=== PATIENT | male | born 1980 | race Hispanic/Latino ===

== ENCOUNTER 2022-04-22 18:56 | Emergency (ER) | payer OTHER ==
[~2022-04-22] VITALS: Ht 170.2 cm; Wt 98.0 kg
[2022-04-22 18:57] VITALS: BP 163/101
[2022-04-22] MEDS ORDERED: OXYC-38 PO ×2 (19:23→22:29)
[2022-04-22] MEDS ORDERED: INDO50CA98 PO (19:25)
[2022-04-22] MEDS ORDERED: COLC0.6C3 PO (19:25)
[2022-04-22] MEDS ORDERED: ALLO100T PO (19:25)
[2022-04-22] MEDS ORDERED: OXYCODONE/ACETAMIN 5/325MG TAB PO ONE (19:30)
[2022-04-22] MEDS ORDERED: COLCHICINE 0.6 MG TABLET PO ONE (19:30)
== END 2022-04-22 20:06 | disposition home or self-care (01) ==
LOC: EDBD 18:56 → EDH 18:56
DX: M10.9 Gout, unspecified (principal); I10 Essential (primary) hypertension; E78.00 Pure hypercholesterolemia, unspecified; E11.9 Type 2 diabetes mellitus without complications

== ENCOUNTER 2022-07-18 16:41 | Emergency (ER) | payer OTHER ==
[~2022-07-18] VITALS: Ht 167.6 cm; Wt 94.3 kg
[~2022-07-18 16:41] MED LIST: ALLO100T PO; COLC0.6C3 PO; INDO50CA98 PO; OXYC-38 PO
[2022-07-18] MEDS ORDERED: KETOROLAC 15MG/ML VIAL (15MG/ML) IV ONE (17:00)
[2022-07-18] MEDS ORDERED: 0.9%NACL 1000ML 2,000 ML IV ONE (17:00)
[2022-07-18 17:27] LABS: BASOPHILS % (AUTO) 0.4 % (0.0-5.0); EOSINOPHILS % (AUTO) 2.6 % (0.0-8.0); HEMATOCRIT 40.9 % (42-54); LYMPHOCYTES % (AUTO) 22.6 % (21.0-51.0); MEAN CORPUSCULAR HEMOGLOBIN 28.6 pg (27.0-33.0); MEAN CORPUSCULAR HGB CONC 33.7 g/dL (32.0-36.0); MEAN CORPUSCULAR VOLUME 84.7 fL (79-99); MONOCYTES % (AUTO) 8.2 % (3.0-13.0); NEUTROPHILS % (AUTO) 64.9 % (40.0-77.0); PLATELET COUNT (AUTO) 271 K/uL (130-400); RED BLOOD CELL COUNT(AUTO) 4.83 MIL/uL (4.50-6.20); RED CELL DISTRIBUTION WIDTH 13.7 % (11.0-15.5); WHITE BLOOD COUNT (AUTO) 14.1 K/uL (4.8-10.8)
[2022-07-18 17:36] LABS: CREATININE 1.1 mg/dL (0.5-1.5); POTASSIUM 4.1 mmol/L (3.5-5.1)
[2022-07-18 17:40] LABS: ALBUMIN 3.7 g/dL (3.5-5.0); TOTAL PROTEIN, SERUM 7.4 g/dL (6.0-8.3)
[2022-07-18 18:17] LABS: APPEARANCE,URINE CLEAR (CLEAR); BILIRUBIN,URINE NEGATIVE (NEGATIVE); COLOR,URINE LIGHT-YELLOW (YELLOW); GLUCOSE, URINE (UA) NEGATIVE (NEGATIVE); KETONES,URINE NEGATIVE (NEGATIVE); LEUKOCYTE ESTERASE ,URINE NEGATIVE Leu/uL (NEGATIVE); NITRATE,URINE NEGATIVE (NEGATIVE); OCCULT BLOOD,URINE NEGATIVE (NEGATIVE); PH,URINE 5.5 (5.0-8.0); PROTEIN,URINE NEGATIVE (NEGATIVE); UROBILINOGEN,URINE 0.2 mg/dL (0.2-1.0)
[2022-07-18] MEDS ORDERED: IOHEXOL 350 MG/ML 100ML INFUS..BTL IV ONE (18:38)
[2022-07-18 22:11] VITALS: BP 115/83
[2022-07-18] MEDS ORDERED: COLC0.6C3 PO (22:32)
[2022-07-18] MEDS ORDERED: ONDANSETRON 4MG INJ IVP ONE (23:00)
[2022-07-18] MEDS ORDERED: MORPHINE 4 MG SYG IVP ONE (23:00)
== END 2022-07-18 22:47 | disposition home or self-care (01) ==
LOC: EDH 16:41
DX: M10.9 Gout, unspecified (principal); R10.9 Unspecified abdominal pain; E11.9 Type 2 diabetes mellitus without complications; E78.00 Pure hypercholesterolemia, unspecified; I10 Essential (primary) hypertension; Z79.1 Long term (current) use of non-steroidal anti-inflammatories (NSAID)
CPT/HCPCS: 99285; 74178; 96374; 96361; 80053; 85025; 81003; 36415; 73110; J7030; J1885; Q9967

== ENCOUNTER 2023-08-19 02:26 | Emergency (ER) | payer OTHER ==
[~2023-08-19] VITALS: Ht 170.2 cm; Wt 102.5 kg
[2023-08-19 02:53] LABS: BASOPHILS # (AUTO) 0.04 K/uL (0.00-0.20); BASOPHILS % (AUTO) 0.4 % (0.0-5.0); EOSINOPHILS # (AUTO) 0.33 K/uL (0.00-0.70); EOSINOPHILS % (AUTO) 3.1 % (0.0-8.0); HEMATOCRIT 46.2 % (42-54); IMMATURE GRANULOCYTE ABSOLUTE 0.08 K/uL (0-1); LYMPHOCYTES # (AUTO) 2.2 K/uL (1.0-4.8); LYMPHOCYTES % (AUTO) 20.9 % (21.0-51.0); MEAN CORPUSCULAR HEMOGLOBIN 29.3 pg (27.0-33.0); MEAN CORPUSCULAR HGB CONC 33.3 g/dL (32.0-36.0); MEAN CORPUSCULAR VOLUME 87.8 fL (79-99); MONOCYTES # (AUTO) 0.8 K/uL (0.1-1.0); NEUTROPHILS # (AUTO) 7.1 K/uL (1.8-7.7); NEUTROPHILS % (AUTO) 66.8 % (40.0-77.0); PLATELET COUNT (AUTO) 191 K/uL (130-400); RED BLOOD CELL COUNT(AUTO) 5.26 MIL/uL (4.50-6.20); RED CELL DISTRIBUTION WIDTH 14.4 % (11.0-15.5); WHITE BLOOD COUNT (AUTO) 10.6 K/uL (4.8-10.8)
[2023-08-19 02:55] LABS: APPEARANCE,URINE CLEAR (CLEAR); BILIRUBIN,URINE NEGATIVE (NEGATIVE); COLOR,URINE COLORLESS (YELLOW); GLUCOSE, URINE (UA) NEGATIVE (NEGATIVE); KETONES,URINE NEGATIVE (NEGATIVE); LEUKOCYTE ESTERASE ,URINE NEGATIVE Leu/uL (NEGATIVE); NITRATE,URINE NEGATIVE (NEGATIVE); OCCULT BLOOD,URINE NEGATIVE (NEGATIVE); PROTEIN,URINE NEGATIVE (NEGATIVE); UROBILINOGEN,URINE 0.2 mg/dL (0.2-1.0)
[2023-08-19 02:56] LABS: ADD UA MICROSCOPIC NO
[2023-08-19 03:06] LABS: POTASSIUM 3.9 mmol/L (3.5-5.1)
[2023-08-19 03:10] LABS: ALBUMIN 3.6 g/dL (3.5-5.0); BILIRUBIN,TOTAL 0.4 mg/dL (0.2-1.0); TOTAL PROTEIN, SERUM 7.9 g/dL (6.0-8.3)
[2023-08-19] MEDS ORDERED: 0.9%NACL 1000ML 1,000 ML IV ONE (04:00)
[2023-08-19] MEDS ORDERED: FAMOTIDINE 20MG VIAL IV ONE (04:00)
[2023-08-19] MEDS ORDERED: METOCLOPRAMIDE 10 MG/2 ML VIAL IVP ONE (04:00)
[2023-08-19] MEDS ORDERED: MORPHINE 4 MG SYG IVP ONE (04:00)
[2023-08-19 08:50] VITALS: BP 125/83; PULSE 72; RESP 18; O2SAT 97
== END 2023-08-19 10:58 | disposition home or self-care (01) ==
LOC: EDH 02:26
DX: R10.31 Right lower quadrant pain (principal); K76.0 Fatty (change of) liver, not elsewhere classified; N13.30 Unspecified hydronephrosis; N28.9 Disorder of kidney and ureter, unspecified; I10 Essential (primary) hypertension; E11.9 Type 2 diabetes mellitus without complications; E78.00 Pure hypercholesterolemia, unspecified; Z79.899 Other long term (current) drug therapy
CPT/HCPCS: 99285; 74176; 96374; 96375; 96361; 80053; 83690; 85025; 84153; 81003; 36415; J3490; J7030; J2270; J2765

== ENCOUNTER 2025-03-07 17:38 | Emergency (ER) | payer BC ==
[~2025-03-07] VITALS: Ht 177.8 cm; Wt 104.3 kg
[2025-03-07 18:30] LABS: BASOPHILS # (AUTO) 0.06 K/uL (0.00-0.20); BASOPHILS % (AUTO) 0.5 % (0.0-5.0); EOSINOPHILS # (AUTO) 0.59 K/uL (0.00-0.70); EOSINOPHILS % (AUTO) 4.9 % (0.0-8.0); HEMATOCRIT 44.4 % (42-54); IMMATURE GRANULOCYTE ABSOLUTE 0.15 K/uL (0-1); LYMPHOCYTES # (AUTO) 3.4 K/uL (1.0-4.8); MEAN CORPUSCULAR HGB CONC 33.6 g/dL (32.0-36.0); MEAN CORPUSCULAR VOLUME 86.5 fL (79-99); MONOCYTES # (AUTO) 0.8 K/uL (0.1-1.0); MONOCYTES % (AUTO) 6.6 % (3.0-13.0); NEUTROPHILS # (AUTO) 7.1 K/uL (1.8-7.7); NEUTROPHILS % (AUTO) 58.8 % (40.0-77.0); PLATELET COUNT (AUTO) 155 K/uL (130-400); RED BLOOD CELL COUNT(AUTO) 5.13 MIL/uL (4.50-6.20); WHITE BLOOD COUNT (AUTO) 12.1 K/uL (4.8-10.8)
[2025-03-07 18:41] LABS: POTASSIUM 4.1 mmol/L (3.5-5.1)
[2025-03-07 18:45] LABS: ALBUMIN 3.6 g/dL (3.5-5.0); BILIRUBIN,DIRECT 0.1 mg/dL (0.0-0.3); BILIRUBIN,TOTAL 0.5 mg/dL (0.2-1.0); TOTAL PROTEIN, SERUM 7.8 g/dL (6.0-8.3)
[2025-03-07] MEDS: ondanSETRON 4MG INJ IVP ONE (19:40)
[2025-03-07] MEDS: 0.9%NACL 1000ML 1,000 ML IV ONE (19:40)
[2025-03-07] MEDS: morPHINE 2 MG SYG IVP ONE (19:40)
[2025-03-07] MEDS ORDERED: IOHEXOL 350 MG/ML 100ML INFUS..BTL IV ONE (20:02)
--- NOTE | 2025-03-07 20:42 | HMCIMG ---
CT ABDOMEN/PELVIS W/CONTRAST HISTORY: Epigastric pain COMPARISON: 08/19/2023 TECHNIQUE: Multiple sequential axial images of the abdomen and pelvis were obtained from the dome of the diaphragm through symphysis pubis. Patient was not given contrast through intravenous route. Oral contrast was not given. FINDINGS: No pleural effusion is seen bilaterally. There is no evidence of parenchymal disease or pulmonary nodule of the visualized lower lungs. Degenerative changes of the thoracolumbar spine are present. The heart is not enlarged. Liver measures 15 cm. Spleen measures 15 cm the gallbladder is distended. The liver, spleen, adrenal glands and pancreas are unremarkable. There is no evidence of hydronephrosis bilaterally. No evidence of renal stone is seen. Fecal material is seen in the colon. There are normal size retroperitoneal and mesenteric lymph nodes. No ascites is seen. No CT evidence of acute appendicitis is seen. There is mild small bowel dilatation with fluid-filled may be related to enteritis. Pelvic sidewalls are symmetric bilaterally. Bladder is well distended without wall thickening. IMPRESSION: 1. No CT evidence of acute appendicitis is seen. There is mild small bowel dilatation with fluid-filled may be related to enteritis. CT was performed with one or more following dose reduction techniques: automated exposure control, adjustment of the mA and kv according to patient's size, or use of a iterative reconstruction technique.
[2025-03-07 21:16] LABS: APPEARANCE,URINE CLEAR (CLEAR); BILIRUBIN,URINE NEGATIVE (NEGATIVE); COLOR,URINE LIGHT-YELLOW (YELLOW); GLUCOSE, URINE (UA) NEGATIVE (NEGATIVE); KETONES,URINE NEGATIVE (NEGATIVE); LEUKOCYTE ESTERASE ,URINE NEGATIVE Leu/uL (NEGATIVE); NITRATE,URINE NEGATIVE (NEGATIVE); OCCULT BLOOD,URINE NEGATIVE (NEGATIVE); PH,URINE 5.5 (5.0-8.0); PROTEIN,URINE NEGATIVE (NEGATIVE); UROBILINOGEN,URINE 0.2 mg/dL (0.2-1.0)
[2025-03-07 21:18] LABS: ADD UA MICROSCOPIC NO
--- NOTE | 2025-03-07 21:56 | HMCIMG ---
US ABDOMINAL RUQ\E\LTD HISTORY: acute choley COMPARISON: None FINDINGS: Liver is unremarkable. The portal vein is patent. The gallbladder is free of calculi and wall thickening or pericholecystic fluid. The common duct measures 4 mm. The visualized portions of the pancreas is unremarkable. The right kidney measures 12.6 cm in length and there is no identified hydronephrosis or nephrolithiasis. IMPRESSION: There are no acute findings
[2025-03-07] MEDS ORDERED: KETO10TA2 PO (22:21)
[2025-03-07] MEDS ORDERED: ONDA-243 PO (22:21)
--- NOTE | 2025-03-07 22:22 | ERN ---
General Chief Complaint: Abdominal Pain Stated Complaint: SWELLING,STOMACH PAIN,UMBILICAL HERNIA RIGHT SIDE Time Seen by MD: 17:41 Time Seen by Midlevel: 17:41 Source: patient History of Present Illness Initial Comments The patient is a 44-year-old male with a past medical history of an umbilical hernia presenting to the emergency department for evaluation of midepigastric/right upper quadrant abdominal pain. The pain started earlier today and has progressively worsened. On arrival the pain is rated 10/10 Allergies: Coded Allergies: No Known Allergies (Unverified Allergy, Unknown, 04/22/22) Home Meds Active Scripts Colchicine (Colchicine) 0.6 Mg Capsule, 0.6 MG PO ONCE, #2 CAP Prov:KOFFI HAM NP 07/18/22 Oxycodone HCl/Acetaminophen (Percocet 5-325 mg Tablet) 1 Each Tablet, 1 EACH PO Q4HPRN PRN for PAIN LEVEL 4 TO 6, #20 TAB 0 Refills Prov:NADIA CASTILLO MD 04/22/22 Indomethacin (Indomethacin) 50 Mg Capsule, 50 MG PO TID for 7 Days, #21 CAP 0 Refills Prov:NADIA CASTILLO MD 04/22/22 Allopurinol (Allopurinol) 100 Mg Tablet, 100 MG PO DAILY for 30 Days, #30 TAB Prov:NADIA CASTILLO MD 04/22/22 Colchicine (Colchicine) 0.6 Mg Capsule, 0.6 MG PO BID for 30 Days, #60 CAP 0 Refills Prov:NADIA CASTILLO MD 04/22/22 Oxycodone HCl/Acetaminophen (Percocet 5-325 mg Tablet) 1 Each Tablet, 1 EACH PO Q4HPRN for pain for 3 Days, #20 TAB 0 Refills Prov:NADIA CASTILLO MD 04/22/22 Past Medical History Past Medical History: Hypertension Medical History Other: GOUT Past Surgical History: None Social History Social History: Negative ROS Dictation CONSTITUTIONAL: Negative except for HPI HEAD/FACE: Negative except for HPI EENT: Negative except for HPI RESPIRATORY: Negative except for HPI GASTROINTESTINAL/ABDOMINAL: Negative except for HPI GENITOURINARY: Negative except for HPI MUSCULOSKELETAL: Negative except for HPI INTEGUMENTARY: Negative except for HPI NEUROLOGICAL/PSYCH: Negative except for HPI HEMATOLOGIC/LYMPHATIC: Negative except for HPI All Systems Negative, Except as noted above. 13 point review of systems assessed and all negative except for above. Physical Exam Physical Exam Dictation Vital Signs reviewed General Appearance: Alert, oriented x 3, no acute distress, well developed, nourished. Head and Face: non-traumatic. Eyes: PERRL, pink conjunctivas, eyelid no trauma, anterior chamber with arcus senilis. Ears: Pinnas intact and no signs of trauma or erythema ear canals clear and no discharge TM no erythema Nose: No discharge, no bleeding. Oropharynx: Mouth normal, tongue pink, pharynx clear,no erythema, tonsils no exudates, no abscesses noted, mucous membrane moist Neck: Supple, non-tender, no thyromegaly, no masses, no JVD, no bruits Breast:Deferred Chest:No tenderness, no crepitus, no paradoxical movement, no retractions Lungs:Clear, well-ventilated, symmetric, no rales, no wheezing, no rhonchi, no stridor, good breath sounds bilaterally Heart: Regular rate, regular rhythm, no murmur, no gallops Vascular: no peripheral edema, Abdomen: Soft, positive bowel sounds, nondistended, no guarding, Midepigastric abdominal tenderness, no rebound, no masses no hepatomegaly, no splenomegaly, no Nogueira's sign, no hernias. Rectal: Deferred Genital: Deferred Neurological: Normal speech, motor function intact, sensory function intact Musculoskeletal: Neck nontender, full range of motion, back nontender, full range of motion, Extremities: nontender, full range of motion Skin: Color pink, dry, no turgor, no rash, no lacerations, no abrasions, no contusions. Lymphatic: Deferred Results Laboratory and Microbiology Lab and Micro Result Laboratory Tests Test 03/07/25 18:24 03/07/25 20:50 White Blood Count 12.1 K/uL (4.8-10.8) H Red Blood Count 5.13 MIL/uL (4.50-6.20) Hemoglobin 14.9 g/dL (14.0-18.0) Hematocrit 44.4 % (42-54) Mean Corpuscular Volume 86.5 fL (79-99) Mean Corpuscular Hemoglobin 29.0 pg (27.0-33.0) Mean Corpuscular Hemoglobin Concent 33.6 g/dL (32.0-36.0) Red Cell Distribution Width 15.0 % (11.0-15.5) Platelet Count 155 K/uL (130-400) Mean Platelet Volume 11.6 fL (7.5-10.5) H Immature Granulocyte % (Auto) 1.2 % (0-1) H Neutrophils (%) (Auto) 58.8 % (40.0-77.0) Lymphocytes (%) (Auto) 28.0 % (21.0-51.0) Monocytes (%) (Auto) 6.6 % (3.0-13.0) Eosinophils (%) (Auto) 4.9 % (0.0-8.0) Basophils (%) (Auto) 0.5 % (0.0-5.0) Neutrophils # (Auto) 7.1 K/uL (1.8-7.7) Lymphocytes # (Auto) 3.4 K/uL (1.0-4.8) Monocytes # (Auto) 0.8 K/uL (0.1-1.0) Eosinophils # (Auto) 0.59 K/uL (0.00-0.70) Basophils # (Auto) 0.06 K/uL (0.00-0.20) Absolute Immature Granulocyte (auto 0.15 K/uL (0-1) Nucleated Red Blood Cells 0.0 % (0.0-0.19) Sodium Level 142 mmol/L (136-145) Potassium Level 4.1 mmol/L (3.5-5.1) Chloride Level 107 mmol/L (101-111) Carbon Dioxide Level 28 mmol/L (21-32) Blood Urea Nitrogen 13 mg/dL (7-18) Creatinine 1.0 mg/dL (0.5-1.3) Glomerular Filtration Rate Calc 95 mL/min (>90) Random Glucose 111 mg/dL (70-105) H Lactic Acid Level 1.2 mmol/L (0.8-2.5) Total Calcium 8.9 mg/dL (8.5-10.1) Total Bilirubin 0.5 mg/dL (0.2-1.0) Direct Bilirubin 0.1 mg/dL (0.0-0.3) Aspartate Amino Transf (AST/SGOT) 42 U/L (10-37) H Alanine Aminotransferase (ALT/SGPT) 74 U/L (12-78) Alkaline Phosphatase 107 U/L (50-136) Total Protein 7.8 g/dL (6.0-8.3) Albumin 3.6 g/dL (3.5-5.0) Lipase 49 U/L (16-77) Urine Color LIGHT-YELLOW (YELLOW) Urine Appearance CLEAR (CLEAR) Urine pH 5.5 (5.0-8.0) Urine Specific [place]kin 1.023 (1.001-1.031) Urine Protein NEGATIVE mg/dL (NEGATIVE) Urine Glucose (UA) NEGATIVE mg/dL (NEGATIVE) Urine Ketones NEGATIVE mg/dL (NEGATIVE) Urine Occult Blood NEGATIVE (NEGATIVE) Urine Nitrate NEGATIVE (NEGATIVE) Urine Bilirubin NEGATIVE mg/dL (NEGATIVE) Urine Urobilinogen 0.2 mg/dL (0.2-1.0) Urine Leukocyte Esterase NEGATIVE Zbigniew/uL Labs Reviewed?: Yes MDM MDM: Differential diagnosis: Acute cholecystitis, pancreatitis, biliary colic There are no social concerns with this patient. Prescription drug management Prescriptions will include: Toradol and Zofran Medical management and examination interpretation discussions were had by me with other qualified healthcare professionals as indicated for the patient's care. ED Course Orders Procedure Category Date Status Time Cbc With Differential LAB 03/07/25 Complete 18:07 Basic Metabolic Panel LAB 03/07/25 Complete 18:07 Lipase LAB 03/07/25 Complete 18:07 Lactic Acid LAB 03/07/25 Complete 18:07 Hepatic Function Panel LAB 03/07/25 Complete 18:07 Urinalysis Profile LAB 03/07/25 Complete 18:07 Ondansetron 4mg Inj PHA 03/07/25 Complete (Zofran 4mg Inj) 19:30 Morphine 2mg Syg PHA 03/07/25 Complete (Morphine 2mg Syg) 19:30 0.9%Nacl 1000ml (Ns PHA 03/07/25 Complete 1000ml) 19:30 Ct Abdomen/Pelvis CT 03/07/25 Resulted W/Contrast 19:30 Iohexol (Omnipaque) PHA 03/07/25 Complete 20:02 Us Abdominal Ruq\Ltd US 03/07/25 Resulted 20:55 Current Medications Medications (Trade) Dose Ordered Sig/Ashok Route PRN Reason Start Time Stop Time Status Last Admin Dose Admin Iohexol (Omnipaque) 35,000 mg STK-MED ONCE IV 03/07/25 20:02 03/07/25 20:03 DC Morphine Sulfate (morPHINE 2MG SYG) 2 mg ONCE ONCE IVP 03/07/25 19:30 03/07/25 19:32 DC 03/07/25 19:40 Ondansetron HCl (zoFRAN 4MG INJ) 4 mg ONCE ONCE IVP 03/07/25 19:30 03/07/25 19:32 DC 03/07/25 19:40 Sodium Chloride 1,000 ml @ 0 mls/hr ONCE ONCE IV 03/07/25 19:30 03/07/25 19:32 DC 03/07/25 19:40 Vital Signs Date Time Temp Pulse Resp B/P (MAP) Pulse Ox O2 Delivery O2 Flow Rate FiO2 03/07/25 18:43 98.2 80 16 134/86 98 Room Air* 0 21 03/07/25 17:52 97.5 81 16 154/102 97 Room Air [place] [address] [place] [id number] IMAGING REPORT Signed PATIENT: CARMELINA VALDEZ MR#: [id number] : 1980 SEX: M AGE: 44 LOCATION: [facility]H ORDER 30 STATUS: REG REPORT#: [id number] SERVICE 29 REASON: mid epigastric abd pain ORDERING PHYSICIAN: NEDER BONDS PROCEDURE: ABD PEL W - CT ABDOMEN/PELVIS W/CONTRAST CT ABDOMEN/PELVIS W/CONTRAST HISTORY: Epigastric pain COMPARISON: 08/19/2023 TECHNIQUE: Multiple sequential axial images of the abdomen and pelvis were obtained from the dome of the diaphragm through symphysis pubis. Patient was not given contrast through intravenous route. Oral contrast was not given. FINDINGS: No pleural effusion is seen bilaterally. There is no evidence of parenchymal disease or pulmonary nodule of the visualized lower lungs. Degenerative changes of the thoracolumbar spine are present. The heart is not enlarged. Liver measures 15 cm. Spleen measures 15 cm the gallbladder is distended. The liver, spleen, adrenal glands and pancreas are unremarkable. There is no evidence of hydronephrosis bilaterally. No evidence of renal stone is seen. Fecal material is seen in the colon. There are normal size retroperitoneal and mesenteric lymph nodes. No ascites is seen. No CT evidence of acute appendicitis is seen. There is mild small bowel dilatation with fluid-filled may be related to enteritis. Pelvic sidewalls are symmetric bilaterally. Bladder is well distended without wall thickening. IMPRESSION: 1. No CT evidence of acute appendicitis is seen. There is mild small bowel dilatation with fluid-filled may be related to enteritis. CT was performed with one or more following dose reduction techniques: automated exposure control, adjustment of the mA and kv according to patient's size, or use of a iterative reconstruction technique. DICTATED BY: TRISTAN TERRY MD DATE: 03/07/252035 ELECTRONICALLY SIGNED BY: TRISTAN TERRY MD DATE: 03/07/252041 [place] [address] [id number] IMAGING REPORT Signed PATIENT: CARMELINA VALDEZ MR#: [id number] : 1980 SEX: M AGE: 44 LOCATION: ED ORDER 55 STATUS: REG ER REPORT#: [id number] SERVICE 54 REASON: r/o acute choley ORDERING PHYSICIAN: ENDER BONDS PROCEDURE: ABDRUQLTD - US ABDOMINAL RUQ\LTD US ABDOMINAL RUQ\E\LTD HISTORY: acute choley COMPARISON: None FINDINGS: Liver is unremarkable. The portal vein is patent. The gallbladder is free of calculi and wall thickening or pericholecystic fluid. The common duct measures 4 mm. The visualized portions of the pancreas is unremarkable. The right kidney measures 12.6 cm in length and there is no identified hydronephrosis or nephrolithiasis. IMPRESSION: There are no acute findings DICTATED BY: ANJUM STANTON DO DATE: 03/07/252150 ELECTRONICALLY SIGNED BY: ANJUM STANTON DO DATE: 03/07/252155 DX & DISP Disposition: Discharge Departure Impression: Primary Impression: Biliary colic Condition: Stable Scripts Ondansetron (Ondansetron Odt) 4 Mg Tab.rapdis 4 MG PO BID for 7 Days, #14 TAB Prov: ENDER BONDS 03/07/25 Ketorolac Tromethamine (Ketorolac Tromethamine) 10 Mg Tablet 1 TAB PO TID for pain for 5 Days, #15 TAB 0 Refills Prov: ENDER BONDS 03/07/25 Referrals: ESHA RACHEL NP (PCP) YAMILKA SIMPSON DO Time of Disposition: 22:20 I have reviewed the case, and I agree with, Diagnosis and Plan I performed the substantive portion of the visit. I have reviewed and personally made and approve the management plan that is documented in the note by myself or the MELISSA. I acknowledge for responsibility for the patient's management plan. ENDER BONDS March 07, 2025 22:22
[2025-03-07 22:41] VITALS: BP 117/65; PULSE 80; RESP 16; TEMP 98.3; O2SAT 98
== END 2025-03-07 22:49 | disposition home or self-care (01) ==
LOC: EDH 17:38
DX: K80.50 Calculus of bile duct without cholangitis or cholecystitis without obstruction (principal); I10 Essential (primary) hypertension; Z79.899 Other long term (current) drug therapy
CPT/HCPCS: 99285; 74177; 96374; 76705; 96375; 80076; 80048; 83690; 85025; 83605; 81003; 36415; J2270; J7030; J2405; Q9967